=== PATIENT | female | born 1950 | race Caucasian/White ===

== ENCOUNTER → 2018-03-23 12:32 | Outpatient (CLI) | payer OTHER, SELFPAY ==
--- NOTE | 2018-03-23 | DI.MRI.S_ITS ---
PROCEDURE: MR TMJ WO CON INDICATIONS: JAW PAIN TECHNIQUE: Axial T1 spin echo, coronal and sagittal PD fast spin echo through the temporomandibular joints, in both the closed- and open-mouth positions. COMPARISON: None. FINDINGS: Image quality: Excellent. Right: Joint is normally aligned on closed and open-mouth positioning. There is limited range of motion in the open-mouth position. Articular disk demonstrates anterior dislocation which does not reduce in the open mouth position. No bony erosions. Minimal condylar head osteophytosis. Left: Joint is normally aligned on closed and open-mouth positioning. There is limited range of motion the open-mouth position. Articular disk demonstrates normal location and morphology. No bony erosions. Minimal condylar head osteophytosis. IMPRESSION: 1. Right articular disc anterior dislocation which does not reduce in the open mouth position. 2. 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 Dictated by: Genoveva Johnston MD, PhD on 03/23/2018 at 14:39 Approved by: Genoveva Johnston MD, PhD on 03/26/2018 at 10:52
== END ==
PROVIDERS: PCP Family Medicine; Visit Provider Dentist Oral and Maxillofacial Surgery
DX: S03.01XA Dislocation of jaw, right side, initial encounter (principal); M26.623 Arthralgia of bilateral temporomandibular joint
CPT/HCPCS: 70336

== ENCOUNTER → 2020-01-04 12:35 | Outpatient (CLI) | payer OTHER, SELFPAY ==
--- NOTE | 2020-01-04 | DI.MRI.S_ITS ---
PROCEDURE: MR TMJ WO CON INDICATIONS: Jaw pain TECHNIQUE: Axial T1 spin echo, coronal and sagittal PD fast spin echo through the temporomandibular joints, in both the closed- and open-mouth positions. COMPARISON: [facility], MR, MR TMJ WO CON, 03/23/2018, 12:58. FINDINGS: Image quality: This examination is limited by involuntary motion artifact. Images are repeated, with some improvement. Right: The right articular disc is anteriorly located on the closed-mouth images. This does not reduce on the open-mouth images. Minimal osteophyte formation is seen. Left: The left articular disc is anteriorly located on the closed mouth images. The distance not appropriately reduced on the open-mouth images. Irregularity and osteophyte formation can be seen involving the mandibular condyle. IMPRESSION: Abnormalities seen on both sides, with the articular discs anteriorly located on the open-mouth images and do not reduce on the closed mouth images. Irregularity and osteophyte formation can be seen involving the mandibular condyles, left worse than right. Dictated by: Flavio Quintana M.D. on 01/06/2020 at 8:10 Approved by: Flavio Quintana M.D. on 01/06/2020 at 8:17
== END ==
PROVIDERS: PCP Family Medicine; Referring Provider Dentist Oral and Maxillofacial Surgery; Visit Provider Dentist Oral and Maxillofacial Surgery
DX: R68.84 Jaw pain (principal)
CPT/HCPCS: 70336

== ENCOUNTER → 2023-10-16 13:44 | Outpatient (CLI) | payer OTHER, SELFPAY ==
--- NOTE | 2023-10-16 | DI.RAD.S_ITS ---
PROCEDURE: FL BARIUM SWALLOW INDICATIONS: Esophageal dysphagia COMPARISON: None. FINDINGS: Function: Mild esophageal dysmotility. No gastroesophageal reflux demonstrated. There is normal transit of a calibrated barium tablet through the esophagus into the stomach. Mild delay of passage of the barium tablet. Morphology: Air-contrast images demonstrate normal mucosal morphology. Single contrast views show no esophageal strictures, extrinsic mass effects, or diverticula. Limited images of the stomach demonstrate normal appearance. IMPRESSION: Mild esophageal dysmotility. Dictated by: Ankur Moran M.D. on 10/16/2023 at 19:52 Approved by: Ankur Moran M.D. on 10/16/2023 at 19:54
== END ==
LOC: RAD 13:45
PROVIDERS: PCP Family Medicine; Referring Provider Internal Medicine; Visit Provider Internal Medicine
DX: R13.19 Other dysphagia (principal)
CPT/HCPCS: 74220